=== PATIENT | female | born 1985 | race Caucasian/White ===

== ENCOUNTER → 2018-10-01 | Outpatient (CLI) | payer MEDICAID | LOC: FIMAGING 15:08 | PROVIDERS: ATTEND Midwife | DX: O26.611 Liver and biliary tract disorders in pregnancy, first trimester (principal); O09.211 Supervision of pregnancy with history of pre-term labor, first trimester; Z3A.12 12 weeks gestation of pregnancy ==

== ENCOUNTER → 2018-11-26 | Outpatient (CLI) | payer MEDICAID | LOC: FIMAGING 13:14 | PROVIDERS: ATTEND Midwife | DX: O09.292 Supervision of pregnancy with other poor reproductive or obstetric history, second trimester (principal); Z3A.19 19 weeks gestation of pregnancy ==